=== PATIENT | female | born 1955 | race Caucasian/White ===

== ENCOUNTER 2016-07-28 05:21 | Day surgery (SDC) | payer SELFPAY ==
[~2016-07-28 05:21] MED LIST: ANTACID200 MG PO; ASPIRIN325 M3 PO; SOY ISOFLAVONE PO; TENORMIN50 M1 PO; VITAMIN D PO
[2016-09-15] MEDS ORDERED: NEURONTIN300 M1 PO (09:02)
== END 2016-07-28 11:54 ==
LOC: SRG 05:21 → SHSB 05:23 → ORW 07:28 → PACU 08:02 → SHSB 09:03
PROC: 0Y6T0Z3 Detachment at Right 3rd Toe, Low, Open Approach (ICD-10-PCS; principal; 2016-07-28)
DX: M86.8X7 Other osteomyelitis, ankle and foot (principal); I10 Essential (primary) hypertension; Z86.73 Personal history of transient ischemic attack (TIA), and cerebral infarction without residual deficits; M81.0 Age-related osteoporosis without current pathological fracture; K21.9 Gastro-esophageal reflux disease without esophagitis; F17.210 Nicotine dependence, cigarettes, uncomplicated; Z90.49 Acquired absence of other specified parts of digestive tract; Z79.899 Other long term (current) drug therapy; Z98.890 Other specified postprocedural states
CPT/HCPCS: J0171; J1170; J2250; J3010; J3370